=== PATIENT | female | born 1970 | race Caucasian/White ===

== ENCOUNTER → 2020-06-22 | Outpatient (CLI) | payer SELFPAY ==
--- NOTE | 2020-06-22 16:19 | Diagnostic Imaging Report ---
EXAMINATION: CT Abdomen Pelvis without contrast. TECHNIQUE: Multiple contiguous axial images were obtained through the abdomen and pelvis without the use of intravenous contrast. All CT scans use one or more of the following dose optimizing techniques: automated exposure control, MA and/or KvP adjustment based on a patient size and exam type, or iterative reconstruction. HISTORY: Left lower quadrant and flank pain. COMPARISON: None available. FINDINGS: Lung bases: The lung bases are clear. Solid organs: The liver is normal. The gallbladder is surgically absent. There is no biliary ductal dilation. Pancreas is normal. Spleen is normal. Adrenal glands are normal. There are are multiple left renal calculi measuring up to 2.9 cm within the left renal pelvis. There is a single foci of air within the left upper pole (series 2 image 47). No visualized ureteral calculus or hydroureter. There is right renal cortical scarring. No hydronephrosis. Bowel: The stomach and small bowel are normal without obstruction. The colon and appendix are normal. Peritoneum: There is no intraperitoneal free fluid or free air. No suspicious lymphadenopathy. Vasculature: Calcification of the aorta without aneurysm. Musculoskeletal: Degenerative changes of the spine without suspicious osseous lesion or compression fracture. Pelvis: The uterus is surgically absent. No adnexal mass. The urinary bladder is normal. IMPRESSION: 1. Multiple nonobstructing left renal calculi measuring up to 2.9 cm in the left renal pelvis. No hydronephrosis. 2. A single focus of air within the left upper pole of the left kidney. This finding could be seen with underlying infectious process. Recommend correlation with urinalysis. Dictated by: Dictated on workstation # [id number]
== END ==
LOC: RAD FS 15:49
PROVIDERS: ATTEND Nurse Practitioner
DX: N20.0 Calculus of kidney (principal); D72.829 Elevated white blood cell count, unspecified
CPT/HCPCS: 74176

== ENCOUNTER → 2020-09-14 | Outpatient (CLI) | payer OTHER ==
[~2020-09-14] MED LIST: GADOBUTROL 15 MMOL/15 ML (GADAVIST) VIAL IV ONE
--- NOTE | 2020-09-14 10:09 | Diagnostic Imaging Report ---
PROCEDURE: MRI lumbar spine with and without contrast. TECHNIQUE: Multiplanar, multisequence MRI of the lumbar spine was performed with and without contrast. INDICATION: Chronic back pain and burning sensation in the right thigh. COMPARISON: Abdominal/pelvic CT of 06/22/2020. FINDINGS: The lumbar vertebral statures are normal and the alignment is anatomic. There are findings of fatty hemangiolipomas at multiple lower thoracic and lumbar levels, most notably the L1 vertebral body but also involving T10, T11, and L3. These present as subtle lucencies on the comparison CT and are not appreciably changed. No findings of an aggressive hemangioma. No bony expansion. No cortical disruption. No paraspinal mass, hemorrhage, or fluid collection. No associated fracture. No acute or suspicious bony lesion. The spinal canal is widely patent at each vertebral body and disc space level. Following contrast, no suspicious enhancement. The conus appears normal. There is normal dispersal of the nerves of the cauda equina. The foramina appear patent bilaterally at all levels. 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 No fracture, malalignment, substantial stenosis, or acute abnormalities. Dictated by: Dictated on workstation # [id number]
== END ==
LOC: RAD 08:45
PROVIDERS: ATTEND Nurse Practitioner
DX: D17.79 Benign lipomatous neoplasm of other sites (principal)
CPT/HCPCS: 72158

== ENCOUNTER → 2020-09-14 | Outpatient (CLI) | payer OTHER ==
[2020-09-14 09:58] LABS: ALBUMIN 3.6 GM/DL (3.2-4.5); BUN/CREATININE RATIO 25; CARBON DIOXIDE 24 MMOL/L (21-32); CHLORIDE 104 MMOL/L (98-107); CREATININE SERUM 0.77 MG/DL (0.60-1.30); GFR ESTIMATED > 60; GLUCOSE 144 MG/DL (70-105); PHOSPHORUS 4.7 MG/DL (2.3-4.7); POTASSIUM 4.5 MMOL/L (3.6-5.0); SODIUM 139 MMOL/L (135-145)
== END ==
LOC: LAB 07:59
PROVIDERS: ATTEND Internal Medicine Nephrology
DX: N18.1 Chronic kidney disease, stage 1 (principal)
CPT/HCPCS: 36415; 80069